=== PATIENT | female | born 1960 | race Caucasian/White ===

== ENCOUNTER 2016-05-24 13:32 | Inpatient (IN) ==
--- NOTE | 2016-05-24 11:13 | Discharge Summary ---
Date of Encounter: 05/26/16 Time of Encounter: 07:45 - Discharge Diagnosis (1) Arthritis of left hip Priority: Primary Status: Acute (2) Hypertension Priority: Secondary Status: Chronic Qualifiers: Hypertension type: unspecified secondary hypertension Qualified Code(s): I15.9 - Secondary hypertension, unspecified; I15 - Secondary hypertension (3) Asthma Priority: Secondary Status: Chronic Qualifiers: Asthma severity: unspecified severity Asthma complication type: uncomplicated Qualified Code(s): J45.909 - Unspecified asthma, uncomplicated (4) Thyroid disease Priority: Secondary Status: Chronic (5) Acute blood loss anemia Priority: Primary Status: Acute - Discharge Medications Home Medications: Albuterol Sulfate [Albuterol Inhaler] 2 puff IH Q4HR PRN 05/24/16 [History] Aspirin Enteric Coated [Aspirin EC] 325 mg PO Q12H #30 tablet. 05/24/16 [Rx] Levothyroxine Sodium 100 mcg PO DAILY 05/24/16 [History] Losartan Potassium [Cozaar] 50 mg PO DAILY 05/24/16 [History] Mometasone Furoate [Nasonex] 2 spr NS DAILY PRN 05/24/16 [History] OxyCODONE Immed Rel [Roxicodone 5 MG] 5 - 10 mg PO Q6HR PRN #30 tablet 05/24/16 [Rx] Paroxetine HCl [Paroxetine HCl] 10 mg PO DAILY 05/24/16 [History] Tramadol HCl [Ultram] 50 mg PO QID PRN 05/24/16 [History] Allergies/Adverse Reactions: Allergies Sulfa (Sulfonamide Antibiotics) Allergy (Verified 05/24/16 14:17) Hives promethazine [From Phenergan] Adverse Reaction (Verified 05/24/16 14:17) just makes her feel funny Primary care physician: Marisela Vyas O - Patient Status Disposition: Home, Self-Care Condition: Good Functional capacity at discharge: uses cane/walker Overall status at discharge: patient is progressing back to baseline - Discharge Instructions Follow Up With: Marisela Garcia MD [Primary Care Provider] - - Hospital Course Hospital course: Ms. Rider is a 55 year old female The patient had an uneventful postoperative course. They received antibiotics and physical therapy and were discharged in stable condition. There will follow -up in the office in 2 weeks. Aspirin DVT prophylaxis - Time Spent with Patient Total time spent providing and/or coordinating discharge services:
[2016-05-24] MEDS ORDERED: CeFAZolin Pre 2,000 MG/100 ML 2,000 MG/100 ML BAG IVPB ONE (13:49)
[2016-05-24] MEDS ORDERED: Ringers Solution, Lactated 1,000 ML IVC SCH ×2 (14:00→17:00)
[2016-05-24] MEDS ORDERED: *HR* FentaNYL (PF) 100 MCG/2 ML VIAL ONE (14:06)
[2016-05-24] MEDS ORDERED: *HR* Propofol 200 MG/20 ML VIAL IVP ONE (14:06)
[2016-05-24] MEDS ORDERED: *HR* Midazolam HCl 2 MG/2 ML VIAL ONE (14:06)
[2016-05-24] MEDS ORDERED: Dexamethasone 4 MG/ML VIAL ONE ×2 (14:07→16:32)
[2016-05-24] MEDS ORDERED: *HR* Rocuronium Bromide 50 MG/5 ML VIAL ONE (14:07)
[2016-05-24] MEDS ORDERED: Ondansetron 4 MG/2 ML VIAL ONE ×2 (14:07→16:32)
[2016-05-24] MEDS ORDERED: Lidocaine -MPF 2% 2 ML VIAL ONE (14:07)
[2016-05-24] MEDS ORDERED: *HR* Succinylcholine 200 MG/10 ML VIAL IVP ONE (14:07)
[2016-05-24] MEDS ORDERED: Famotidine 20 MG/2 ML VIAL IVP ONE (14:13)
--- NOTE | 2016-05-24 14:16 | Anesthesia Evaluation PreOp ---
Date of Encounter: 05/24/16 Time of Encounter: 14:14 - Past History Planned Operation: Left THR Cardiac History: HTN Pulmonary History: Asthma HUMAN RESOURCES TECHNICIAN History: Other (Depression/Anxiety) Other Medical History: Thyroid (Hypothyroid), Other (RA) Anesthesia History: No Prior Anesthetic Complications, Past Anesthesia (Appy, Tubal, c/s, FLORINDA, R. Elbow) : No Alcohol Use: rarely Drug use: none Medications and Allergies Albuterol Sulfate [Albuterol Inhaler] 2 puff IH Q4HR PRN 05/24/16 [History] Aspirin Enteric Coated [Aspirin EC] 325 mg PO Q12H #30 tablet. 05/24/16 [Rx] Levothyroxine Sodium 100 mcg PO DAILY 05/24/16 [History] Losartan Potassium [Cozaar] 50 mg PO DAILY 05/24/16 [History] Mometasone Furoate [Nasonex] 2 spr NS DAILY PRN 05/24/16 [History] OxyCODONE Immed Rel [Roxicodone 5 MG] 5 - 10 mg PO Q6HR PRN #30 tablet 05/24/16 [Rx] Paroxetine HCl [Paroxetine HCl] 10 mg PO DAILY 05/24/16 [History] Tramadol HCl [Ultram] 50 mg PO QID PRN 05/24/16 [History] Allergies Sulfa (Sulfonamide Antibiotics) Allergy (Verified 05/24/16 14:17) Hives promethazine [From Phenergan] Adverse Reaction (Verified 05/24/16 14:17) just makes her feel funny - Meds/Allergy Pre-op Review Medications Reviewed: Yes Allergies Reviewed: Yes Beta Blockers on Current Med List: No Anesthesia Results - Labs Laboratory Tests 05/16/16 05/16/16 05/16/16 11:55 11:55 11:55 WBC 7.4 Hgb 11.8 Hct 37.4 Plt Count 266 INR 1.0 Sodium 139 Potassium 4.6 H Chloride 108 Carbon Dioxide 22 BUN 15 Creatinine 0.75 - Imaging EKG: image reviewed (, Poss old ant. CT) Anesthesia Exam O2 Sat Height 1.6 m Height 1.6 m Weight 85.275 kg Weight 85.275 kg O2 Sat by Pulse Oximetry 94 Vital Signs Temp Pulse Resp BP Pulse Ox 99.3 F 112 16 109/79 94 L 05/24/16 13:51 05/24/16 13:51 05/24/16 13:51 05/24/16 13:51 05/24/16 13:51 Height: 5'3'' Weight: 188# NPO (# of Hours): > 8 hrs Pain Scale: 0 Pain Scale Used: Numeric (1 - 10) - HEENT Pupil (Motor): Pupils equal, EOMI Mallampati: II Teeth: Normal Oral Opening: Greater than 3 - HUMAN RESOURCES TECHNICIAN LOC: Oriented HUMAN RESOURCES TECHNICIAN Motor: Deficit RUE, Deficit LUE, Deficit RLE, Deficit LLE, Deficit Face HUMAN RESOURCES TECHNICIAN Sensory: Deficit: RUE, LUE, RLE, LLE, Face - Cardiac Rhythm: Regular Murmur: None JVD: No Carotid Bruit: No - Pulmonary Breath Sounds: bilateral Clear Respiratory Effort: Symmetrical Anesthesia Assess/Plan ASA Score: 2 Modified Jessie Scale for Level of Consciousness: Cooperative, oriented, and tranquil Anesthetic Plan: General Autologous Blood: Yes Monitoring Plan: Standard Monitors Recovery Plan: PACU
[2016-05-24] MEDS ORDERED: *HR* HYDROmorphone 2 MG/ML SYRINGE ONE (15:55)
--- NOTE | 2016-05-24 16:32 | History & Physical Report ---
Date of Encounter: 05/24/16 Time of Encounter: 14:31 24 Hour HP Update - Instructions Instructions: If the History and Physical is less than 30 days old and was completed prior to A.M. admission and or procedure and has NOT been updated on calendar day of procedure please complete this update prior to performing procedure. - Update Patient reports changes in Medical Condition: No Changes in assessment/condition: No Changes in Medication: No Preop tests/diagnostics Reviewed: Yes Surgery Remains Indicated: Yes Consent for Planned Operative Procedure(s) Verified: Yes - Pre-Operative Checklist Preoperative Checklist Indicated: No Prophylactic Antibiotic Ordered: Yes Is VTE Prophylaxis Indicated?: Yes
--- NOTE | 2016-05-24 16:34 | Orthopedic Operative Note ---
Date of procedure: 05/24/16 Pre-op diagnosis: Left hip rheumatoid arthritis Post-op diagnosis: same Procedure: Procedure: Left Total Hip Replacment Estimated blood loss: 200 cc Hardware: Biomet DM Cup: 50 G7 fin cup Femoral size 10 echo full profile lateralized stem Head: +3 head with Pallavi Procedural Notes: Significant for rheumatoid changes of femoral head and acetabular socket, significant synovitis. Operative procedure: The patient was brought to the operating room and placed on the operating room table. After general anesthesia was administered the patient was placed in the lateral decubitus position with the operative leg up. All pressure points were padded appropriately and the head was stabilized in the neutral position. The operative extremity was prepped and draped in the sterile surgical fashion patient received IV antibiotic prior to skin incision. A standard posterior approach is made to the operative hip, the incision was made through the skin and subcutaneous tissue hemostasis was obtained with Bovie cautery. Using careful sharp dissection the fascia was identified and incised exposing the external rotators. The external rotators were released off the greater trochanter and tagged with #2 FiberWire suture. The capsule was T'd open and the hip was brought into internal rotation. Patient noted to have cyst formation in the femoral head secondary to rheumatoid. The femoral neck cut was made at the appropriate level. An anterior capsulotomy was performed for the anterior retractor. Soft tissues removed from the acetabulum. Patient noted to have significant rheumatoid changes of the acetabulum. Acetabulum was first reamed medially, and then reamed in 15 degrees of anteversion and 45 degrees off the horizontal. It was reamed up to the appropriate size 50 The appropriate-sized 50 acetabular cup was impacted in place in 15 degrees of anteversion and 45 degrees off the horizontal. This had good fit and fixation. The hip was brought back in to internal rotation and prepared with the punch box tender followed by the canal finder followed by broaching process in 20 degrees anteversion. It was broached up to the appropriate size 10 The femoral implant was impacted in place in 20 degrees of anteversion. Trial reduction found the hip to be stable with a +3 head and Pallavi. The trials were removed and the real implants were impacted in place. The hip was reduced, patient had apparent equal leg lengths. The hip had excellent stability with forward flexion to 90 degrees adduction of 30 degrees and internal rotation of 60 degrees. The hip had no shuck. The hips after 2 minutes with a Betadine saline solution. It was irrigated out with 2 L of pulse irrigation. The external rotators were reattached to drill holes in the greater trochanter. Fascia was closed with a running #2 PDS suture. The deep tissue was irrigated and closed deep with #1 PDS suture superficially with 0 PDS suture and skin was closed with Dermabond and skin savannah. The patient was placed in a sterile dressing and abduction pillow. The patient was extubated and transferred to the recovery room in stable condition. Anesthesia: GETA Surgeon: Mc Venegas Condition: stable Disposition: PACU
[2016-05-24] MEDS: *HR* HYDROmorphone (PF) 1 MG/ML SYRINGE IVP PRN ×2 (16:54→17:00)
[2016-05-24 16:59] LABS: Hematocrit 35.7 % (35.3-44.9)
--- NOTE | 2016-05-24 17:22 | Anesthesia Evaluation Post Op ---
Date of Encounter: 05/24/16 Time of Encounter: 17:20 - Vital Signs Vital Signs: Vital Signs/O2 Sat/Glucose, Most Current Temp Pulse Resp BP Pulse Ox 05/24/16 17:10 98 F 92 16 119/84 94 L 05/24/16 17:00 89 20 122/88 96 05/24/16 16:50 103 20 141/91 98 05/24/16 16:40 97.2 F L 104 20 143/90 98 05/24/16 13:51 99.3 F 112 16 109/79 94 L - Lungs Lungs: Clear Ascult./Percussion - Airway Airway: Non-obstructed - Cardiovascular Regular Rate - Mental Status Mental Status: Alert & Oriented, Answers Appropriately - Pain Pain Scale: 1 - Nausea Vomiting Nausea Vomiting: Not Present - Hydration Hydration: Ice chips - Discharge PostOp Status: Transfer Patient to floor
[2016-05-24] MEDS ORDERED: MOM Conc 10 ML UD.LIQ PO PRN (17:50)
[2016-05-24] MEDS ORDERED: Sennosides 8.6 MG TABLET PO PRN (17:50)
[2016-05-24] MEDS ORDERED: traMADol 50 MG TABLET PO PRN (17:50)
[2016-05-24] MEDS ORDERED: Naloxone 0.4 MG/ML INJ IVP PRN (17:50)
[2016-05-24] MEDS ORDERED: *HR* HYDROmorphone (PF) 1 MG/ML SYRINGE IVP PRN (17:50)
[2016-05-24] MEDS ORDERED: Temazepam 15 MG CAPSULE PO PRN (17:50)
[2016-05-24] MEDS ORDERED: Ondansetron 4 MG/2 ML VIAL IVP PRN (17:50)
[2016-05-24] MEDS ORDERED: Fluticasone Propionate Nasal 50 MCG/SPRAY BOTTLE NS PRN (17:50)
[2016-05-24] MEDS ORDERED: Acetaminophen 325 MG TABLET PO PRN (17:50)
[2016-05-24] MEDS ORDERED: *HR* OxyCODONE Immed Rel 5 MG TABLET PO PRN (17:50)
[2016-05-24] MEDS ORDERED: *HR* Enoxaparin 30 MG/0.3 ML SYRINGE SQ SCH (18:00)
[2016-05-24] MEDS: *HR* Enoxaparin 30 MG/0.3 ML SYRINGE SQ SCH (18:14)
[2016-05-24] MEDS: *HR* OxyCODONE Immed Rel 5 MG TABLET PO PRN (18:14)
[2016-05-24] MEDS: Ascorbic Acid 500 MG TABLET PO SCH (18:14)
[2016-05-24] MEDS: Ringers Solution, Lactated 1,000 ML IVC SCH (18:19)
[2016-05-25] MEDS: ceFAZolin 2,000 MG in D5% in Water 100 ML IVPB SCH ×2 (00:37→09:37)
[2016-05-25] MEDS: *HR* OxyCODONE Immed Rel 5 MG TABLET PO PRN ×5 (00:43→19:17)
[2016-05-25] MEDS: Ringers Solution, Lactated 1,000 ML IVC SCH ×2 (05:48→20:42)
[2016-05-25] MEDS: *HR* Enoxaparin 30 MG/0.3 ML SYRINGE SQ SCH ×2 (05:48→17:14)
[2016-05-25 06:16] LABS: Hemoglobin 10.2 g/dL (11.5-15.4)
[2016-05-25 06:36] LABS: BUN/Creatinine Ratio 18 (6-26); Blood Urea Nitrogen 13 mg/dL (7-20); Calcium 8.4 mg/dL (8.6-10.8); Carbon Dioxide 22 mEq/L (19-29); Chloride 104 mEq/L (98-109); Glucose 140 mg/dL (70-99); Osmolality,Calculated 278 (280-300); Potassium 4.3 mEq/L (3.5-4.5); Sodium 133 mEq/L (136-145); eGFR For African Americans > 60 (> 60); eGFR For Non-African Americans > 60 (> 60)
--- NOTE | 2016-05-25 06:47 | Orthopedics Progress Note ---
Date of Encounter: 05/25/16 Time of Encounter: 06:46 - Assessment and Plan (1) Arthritis of left hip Current Visit: Yes Status: Acute (2) Hypertension Current Visit: Yes Status: Chronic Qualifiers: Hypertension type: unspecified secondary hypertension Qualified Code(s): I15.9 - Secondary hypertension, unspecified; I15 - Secondary hypertension (3) Asthma Current Visit: Yes Status: Chronic Qualifiers: Asthma severity: unspecified severity Asthma complication type: uncomplicated Qualified Code(s): J45.909 - Unspecified asthma, uncomplicated (4) Thyroid disease Current Visit: Yes Status: Chronic Subjective Interval history: Patient was seen this morning doing well without complaints. Afebrile vital signs stable. Operative extremity: Neurovascularly intact Dressing clean dry and intact Calves nontender Assessment and plan: Continue with postoperative care hct 33 Objective Vital signs: Vital Signs Temp Pulse Resp BP Pulse Ox 05/25/16 05:13 98.2 F 95 14 95/54 94 L 05/25/16 00:18 98.2 F 94 16 118/74 95 05/24/16 20:30 96.7 F L 89 16 116/86 98 05/24/16 19:30 97.1 F L 94 16 110/81 96 05/24/16 18:30 97.3 F L 93 14 116/87 94 L 05/24/16 18:00 97.4 F L 90 12 120/88 96 05/24/16 17:31 98.3 F 88 10 123/80 96 05/24/16 17:20 98.2 F 90 16 132/87 94 L 05/24/16 17:10 98 F 92 16 119/84 94 L 05/24/16 17:00 89 20 122/88 96 05/24/16 16:50 103 20 141/91 98 05/24/16 16:40 97.2 F L 104 20 143/90 98 05/24/16 13:51 99.3 F 112 16 109/79 94 L Intake and Output 05/24/16 05/24/16 05/25/16 15:59 23:59 07:59 Intake Total 1250 / 1250 Output Total 800 / 800 275 / 275 Balance -800 / -800 975 / 975 Intake: IV Fluids 1000 / 1000 Lactated Ringers 1,000 ML 1000 / 1000 @ 75 mls/hr IVC .[id number] JALEN Rx#:[id number] Oral 250 / 250 Output: Urine 600 / 600 275 / 275 Estimated Blood Loss 200 / 200 Other: Weight 85.275 kg - Labs CBC & BMP: 05/25/16 05:16 05/25/16 05:16 Labs: Abnormal lab results Hgb 10.2 g/dL (11.5-15.4) L 05/25/16 05:16 Hct 33.0 % (35.3-44.9) L 05/25/16 05:16 Sodium 133 mEq/L (136-145) L 05/25/16 05:16 Glucose 140 mg/dL (70-99) H 05/25/16 05:16 Calculated Osmolality 278 (280-300) L 05/25/16 05:16 Calcium 8.4 mg/dL (8.6-10.8) L 05/25/16 05:16 - VTE Documentation of Mechanical Device: Venous foot pump, device Consult Discharge Plan - Plan Referrals: Marisela Garcia MD [Primary Care Provider] -
[2016-05-25] MEDS: Ascorbic Acid 500 MG TABLET PO SCH ×2 (08:24→17:14)
[2016-05-25] MEDS: Multivit/Ca/Min/Fe/FA 1 TAB TABLET PO SCH (08:25)
[2016-05-26] MEDS: *HR* OxyCODONE Immed Rel 5 MG TABLET PO PRN (00:57)
[2016-05-26 05:39] LABS: Hematocrit 29.6 % (35.3-44.9); Hemoglobin 9.3 g/dL (11.5-15.4)
[2016-05-26 05:53] LABS: BUN/Creatinine Ratio 17 (6-26); Blood Urea Nitrogen 12 mg/dL (7-20); Calcium 7.8 mg/dL (8.6-10.8); Carbon Dioxide 26 mEq/L (19-29); Chloride 104 mEq/L (98-109); Glucose 113 mg/dL (70-99); Osmolality,Calculated 283 (280-300); Potassium 4.4 mEq/L (3.5-4.5); Sodium 136 mEq/L (136-145); eGFR For African Americans > 60 (> 60); eGFR For Non-African Americans > 60 (> 60)
[2016-05-26] MEDS: *HR* Enoxaparin 30 MG/0.3 ML SYRINGE SQ SCH (06:31)
[2016-05-26 06:43] VITALS: BP 101/63
--- NOTE | 2016-05-26 07:47 | Orthopedics Progress Note ---
Date of Encounter: 05/26/16 Time of Encounter: 07:46 - Assessment and Plan (1) Arthritis of left hip Current Visit: Yes Status: Acute (2) Hypertension Current Visit: Yes Status: Chronic Qualifiers: Hypertension type: unspecified secondary hypertension Qualified Code(s): I15.9 - Secondary hypertension, unspecified; I15 - Secondary hypertension (3) Asthma Current Visit: Yes Status: Chronic Qualifiers: Asthma severity: unspecified severity Asthma complication type: uncomplicated Qualified Code(s): J45.909 - Unspecified asthma, uncomplicated (4) Thyroid disease Current Visit: Yes Status: Chronic (5) Acute blood loss anemia Current Visit: Yes Status: Acute Subjective Interval history: Patient was seen this morning doing well without complaints. Afebrile vital signs stable. Operative extremity: Neurovascularly intact Dressing clean dry and intact Calves nontender Assessment and plan: Continue with postoperative care hct 29 discharged today Objective Vital signs: Vital Signs Temp Pulse Resp BP Pulse Ox 05/26/16 06:29 98.3 F 94 16 101/63 98 05/25/16 23:57 98.1 F 90 16 99/64 99 05/25/16 20:00 98.3 F 81 17 112/71 95 05/25/16 15:03 98.3 F 84 16 114/73 93 L 05/25/16 10:41 98.1 F 87 16 104/69 93 L 05/25/16 07:10 98.0 F 96 14 104/71 93 L Intake and Output 05/25/16 05/25/16 05/26/16 15:59 23:59 08:59 Intake Total 100 / 100 1700 / 1700 Balance 100 / 100 1700 / 1700 Intake: IV Fluids 100 / 100 1000 / 1000 Lactated Ringers 1,000 ML 1000 / 1000 @ 75 mls/hr IVC .[id number] JALEN Rx#:[id number] Ancef 2,000 MG In 100 / 100 Dextrose 5% 100 ML @ 200 mls/hr IVPB Q8H JALEN Rx#: [id number] Oral 700 / 700 Other: Meal Lunch Percent of Meal Consumed 100% # Voids 1 1 1 - Labs CBC & BMP: 05/26/16 05:10 05/26/16 05:10 Labs: Abnormal lab results Hgb 9.3 g/dL (11.5-15.4) L 05/26/16 05:10 Hct 29.6 % (35.3-44.9) L 05/26/16 05:10 Glucose 113 mg/dL (70-99) H 05/26/16 05:10 Calcium 7.8 mg/dL (8.6-10.8) L 05/26/16 05:10 - VTE Documentation of Mechanical Device: Venous foot pump, device Consult Discharge Plan - Plan Referrals: Marisela Garcia MD [Primary Care Provider] -
[2016-05-26] MEDS: Ascorbic Acid 500 MG TABLET PO SCH (09:51)
[2016-05-26] MEDS: Multivit/Ca/Min/Fe/FA 1 TAB TABLET PO SCH (09:51)
== END 2016-05-26 13:15 | disposition home or self-care (01) | DRG 470 ==
LOC: SAMDAY 13:32 → 3NENU 17:27
PROVIDERS: ADMIT Orthopaedic Surgery; ATTEND Orthopaedic Surgery